=== PATIENT | male | born 1975 | race Caucasian/White ===

== ENCOUNTER 2018-12-05 05:03 | Emergency (ER) | payer BC ==
[~2018-12-05] VITALS: Ht 180.3 cm; Wt 99.8 kg
[~2018-12-05 05:03] MED LIST: ASPIR 8181 MG PO; FIBER350 GM PO; KEPPRA 500 MG500 M1 PO; TYLENOL325 MG PO
[2018-12-05] MEDS ORDERED: VALPROIC ACID250 MG PO (05:17)
[2018-12-05] MEDS ORDERED: ZYLOPRIM300 MG PO (05:18)
[2018-12-05] MEDS ORDERED: LEVETIRACETAM750 M1 PO (05:19)
[2018-12-05] MEDS ORDERED: COZAAR 25 MG TA25 M1 PO (05:19)
[2018-12-05] MEDS ORDERED: CELEBREX 200 M200 M1 PO (05:21)
[2018-12-05 05:22] LABS: ABSOLUTE NEUTROPHILS 4.8 thou/uL (1.4-8.2); BASOPHILS 0.4 % (0.0-2.0); HEMATOCRIT 46.9 % (42.0-52.0); HEMOGLOBIN 15.6 gm/dL (14.0-18.0); LYMPHOCYTES 43.7 % (24.0-44.0); MCH 32.6 pg (26.0-34.0); MCHC 33.2 g/dL (28.0-37.0); MONOCYTES 5.4 % (1.0-8.0); PLATELET COUNT 187 thou/uL (150-400); POLYS 49.5 % (36.0-66.0); RBC 4.78 mil/uL (4.50-6.00); RDW 14.1 % (10.5-14.5); WBC 9.6 thou/uL (4.0-11.0)
[2018-12-05] MEDS ORDERED: TEMOZOLOMIDE20 MG PO (05:22)
[2018-12-05] MEDS ORDERED: SEROQUEL 25 MG25 M1 PO (05:26)
[2018-12-05] MEDS ORDERED: XARELTO20 MG PO (05:27)
[2018-12-05] MEDS ORDERED: ONDANSETRON HCL8 M2 PO (05:27)
[2018-12-05] MEDS ORDERED: ZOLOFT50 MG PO (05:27)
[2018-12-05 05:30] LABS: CALCIUM 9.2 mg/dL (8.5-10.1); CREATININE 1.2 mg/dL (0.7-1.3)
[2018-12-05 05:34] LABS: APTT 26.4 Seconds (24.5-32.8); INR 1.1; PROTIME 11.4 Seconds (9.3-11.4)
[2018-12-05 05:36] LABS: ALBUMIN 3.9 g/dL (3.4-5.0); TOTAL BILIRUBIN 0.4 mg/dL (<0.1-1.0); TOTAL PROTEIN 7.7 g/dL (6.4-8.2)
[2018-12-05 08:12] VITALS: BP 145/103
--- NOTE | 2018-12-05 08:35 | EKG ---
[place] [address] [facility] [place] [address] ELECTROCARDIOGRAM REPORT Name: ROSARIORO MARYSOL Room #: [id number] ������������������ Admission: 12/05/18 ������������������ Attend Phys: Discharge: 12/05/18 ������������������ Date of : 79 Report #: [id number] ����������������������������������������������������������������� [id number] THIS REPORT FOR: //name// 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: JCLISONNY : 1975 Requested By: Levy De Paz Order Number: [id number] MD: Michael Whitt Measurements Intervals [place] Rate: 143 P: 39 RI: 117 QRS: 234 QRSD: 103 T: -12 QT: 315 QTc: 486 Interpretive Statements Sinus tachycardia Low voltage QRS Compared to ECG 04/11/2015 17:03:07 No significant change was found Electronically Signed On 12-05-2018 8:35:11 PODIATRIC ASSISTANT by Michael Whitt [email or web address] ��������������������������������������������� <ELECTRONICALLY SIGNED> ���������������������������������������� By: Michael Whitt MD, [facility] ��������������������������������������������� 12/05/18 0835 0513 2 Michael Whitt MD, FACC /EPI
== END 2018-12-05 08:26 | disposition short-term general hospital (02) ==
LOC: ER 05:03
PROVIDERS: Emergency Medicine
DX: G40.909 Epilepsy, unspecified, not intractable, without status epilepticus (principal)